=== PATIENT | male | born 1990 | race Caucasian/White ===

== ENCOUNTER 2016-08-24 02:10 | Emergency (ER) | payer OTHER ==
[~2016-08-24] VITALS: Ht 190.5 cm; Wt 72.6 kg
--- NOTE | 2016-08-24 02:12 | NUR ---
Patient to ER HALLWAY for blood alcohol level draw. accompanied by Law Enforcement s/p routine traffic stop.
[2016-08-24 02:14] VITALS: BP 134/76; PULSE 80; RESP 16; TEMP 98.4; O2SAT 99
--- NOTE | 2016-08-24 02:15 | NUR ---
In hallway chair Law Enforcement at Pt's side. Here for Blood Alcohol level draw, s/p routine traffic stop. denies illness or injury.
--- NOTE | 2016-08-24 02:20 | NUR ---
Written and verbal consent obtained from patient for blood alcohol, name and verified by patient. Disinfected patient's skin with iodine that did not contain alcohol or other volatile organic compound. Collected the blood from the subject named by venipuncture, in the presence of Officer Margarita. Used a sterile, dry hypodermic needle and dry vacuum blood collection. The dry vacuum blood collection was supplied by the officer named above. Withdrew a specimen of blood from Left arm of the subject named above. Inverted the blood tube several times to ensure that the preservative and anticoagulant were thoroughly mixed in the blood specimen. I initialed the blood tube label for identification. The labeled blood tube was handed directly to the Officer named above. The blood tube stopper remained in place while I had possession of the blood tube. The Officer placed tube into envelope and sealed it in my presence. Envelope initialed by myself and Officer named above. Patient tolerated well, bandage applied, and bleeding controlled.
--- NOTE | 2016-08-24 02:30 | NUR ---
Patient given verbal discharge instructions and verbalizes understanding. Patient in stable condition. ID arm band removed. Pt educated on pain management and to follow up with PMD. Pain Scale 0/10. Opportunity for questions provided and answered.
[2016-08-24 02:38] VITALS: BP 135/72; PULSE 89; RESP 16; TEMP 98.4; O2SAT 99
== END 2016-08-24 02:38 ==
LOC: SED 02:10
DX: Z02.89 Encounter for other administrative examinations (principal); Z88.0 Allergy status to penicillin
CPT/HCPCS: 99283